=== PATIENT | female | born 1930 | race Caucasian/White ===

== ENCOUNTER 2016-11-27 09:01 | Inpatient (IN) | payer MEDICARE ==
[2016-11-27 10:25] LABS: Appearance,Urine Cloudy (Clear); Bilirubin,Urine Negative (Negative); Glucose,Urine (UA) Negative (Negative); Ketones,Urine Trace (Negative); Leukocyte Esterase,Urine Small (Negative); Nitrite,Urine Negative (Negative); Particle Count 15031; Protein,Urine 1+ (Negative); RBC,Urine >182 /hpf (0-5); Specific Gravity,Urine 1.015 (1.001-1.035); Squamous Epithelial Cell,Urine <1 /hpf (0-4); UA Billing (MACRO vs. MICRO) MICRO; Urobilinogen,Urine <2.0 mg/dL (<2.0); WBC,Urine 5 /hpf (0-5)
[2016-11-27 10:50] LABS: Anisocytosis Slight; Basophils % (A) 0 %; CH 25.6; CHCM 30.7; Eosinophils % (A) 0 %; HCT 28.1 % (34.0-46.0); HDW 2.69; Hypochromasia Moderate; Luc # (Auto) 0.06; Luc % (Auto) 1; Lymphocytes # (A) 0.8 k/uL (1.0-4.8); Lymphocytes % (A) 5 %; MCH 25.2 pg (25.0-35.0); MCHC 30.1 g/dL (31.0-37.0); MCV 83.9 fL (80.0-100.0); Mean Platelet Volume 7.9; Monocytes # (A) 0.5 k/uL (0-1.0); Monocytes % (A) 3 %; Neutrophils # (A) 12.9 k/uL (1.3-7.7); Neutrophils % (A) 91 %; RBC 3.35 m/uL (3.80-5.40); RDW 18.5 % (11.5-15.5); WBC 14.3 k/uL (3.8-10.6); WBC (Perox) 15.32
[2016-11-27 10:54] LABS: INR 1.1 (<1.1); Partial Thromboplastin Time 22.3 sec (22.0-30.0); Prothrombin Time 11.2 sec (9.0-12.0)
[2016-11-27 10:55] LABS: Calcium 8.9 mg/dL (8.4-10.2); Total Bilirubin 0.5 mg/dL (0.2-1.3); Total Protein 6.8 g/dL (6.3-8.2)
[2016-11-27 11:01] LABS: HGB 8.4 gm/dL (11.4-16.0)
--- NOTE | 2016-11-27 11:14 | XR ---
EXAMINATION TYPE: XR chest 1V portable DATE OF EXAM: 11/27/2016 10:58 AM COMPARISON: Prior chest x-ray from 4 days earlier. HISTORY: Altered mental status and weakness. TECHNIQUE: Single AP portable frontal view of the chest is obtained. FINDINGS: The osseous structures are demineralized. There is stable mild cardiomegaly with atheroscl erotic thoracic aorta. There is chronic emphysematous change with persistent small to moderate size l eft pleural effusion and associated basilar atelectasis and/or infiltrate. Suspect tiny right pleural effusion. No new focal airspace opacity or pneumothorax is seen bilaterally IMPRESSION: Overall stable findings, mild cardiomegaly with small to moderate size left pleural effu eliseo and suspected tiny right pleural effusion, there is associated left basilar atelectasis and/or i nfiltrate present. Background of chronic parenchymal changes noted.
--- NOTE | 2016-11-27 11:16 | CT ---
EXAMINATION TYPE: CT brain wo con DATE OF EXAM: 11/27/2016 10:50 AM COMPARISON: NONE HISTORY: altered mental changes CT DLP: 1072.3 mGycm Automated exposure control for dose reduction was used. Helical acquisition through the brain Motion on the exam FINDINGS: There is no acute intracranial hemorrhage, mass effect, or midline shift identified. The ventricles and sulci are within normal limits in size. White matter demyelination change is present in the paddy ventricular location, right david shows a focus of low attenuation measuring approximately 7 mm. Focal low attenuation in the basal ganglia bilaterally, possible additional within the left david. The glob es are intact and the visualized sinuses are clear. IMPRESSION: Probable chronic small vessel ischemia. There may be well-oriented degeneration within the right david , difficult to exclude subacute infarct. Consider brain MRI for better evaluation.
[2016-11-27] MEDS ORDERED: ENOXAPARIN 120 MG/0.8 ML SYRINGE SQ STA (12:43)
[2016-11-27] MEDS ORDERED: ACETAMINOPHEN TAB 325 MG TAB PO PRN (13:30)
[2016-11-27] MEDS ORDERED: ENOXAPARIN 120 MG/0.8 ML SYRINGE SQ SCH ×2 (13:30→14:32)
--- NOTE | 2016-11-27 13:36 | ED ---
Altered Mental Status HPI - General Chief Complaint: Altered Mental Status Stated Complaint: mrsa poss c diff Time Seen by Provider: 11/27/16 09:11 Source: family, EMS, RN notes reviewed Mode of arrival: EMS Limitations: altered mental status - History of Present Illness Initial Comments: This patient is an 86-year-old woman who was discharged from the hospital yesterday after a nearly 2 week stay during which she was treated for congestive heart failure, bilateral lower leg cellulitis, and some disorientation that was felt due to medication related encephalopathy. The patient is not able to give any history about her children state that she is definitely much worse than she had been when they saw her around 8 PM last night. The patient is weak, disoriented, not speaking clearly. The last known time that the patient was her usual self was approximately 8 PM. Again the patient is not able to give any history other than answer a few simple yes or no questions. When asked about back pain she does state yes, and her family notes she does have chronic back pain. She was not noted to have any fever at the long-term where she had been discharged to yesterday. MD Complaint: altered mental status Onset/Timin -: days(s) Severity: moderate Consistency of Symptoms: constant Context: change in medication Associated Symptoms: weakness - Related Data Home Medications Medication Instructions Recorded Confirmed Childress-3 Fatty Acids/Fish Oil [Fish 1 cap PO DAILY@0900 11/28/15 11/27/16 Oil 1,000 mg Softgel] Levalbuterol Hfa Inhaler [Xopenex 2 puff INHALATION RT-Q4H 10/01/16 11/27/16 Hfa Inhaler] Acetaminophen Tab [Tylenol] 650 mg PO Q4H PRN 11/13/16 11/27/16 Albuterol Sulfate [Proventil Hfa] 1 puff INHALATION RT-QID 11/13/16 11/27/16 Fluconazole [Diflucan] 100 mg PO DAILY@0900 11/27/16 11/27/16 Furosemide [Lasix] 40 mg PO BID@0600,1400 11/27/16 11/27/16 Lisinopril [Prinivil] 5 mg PO DAILY@0900 11/27/16 11/27/16 Zolpidem [Ambien] 5 mg PO HS@2100 PRN 11/27/16 11/27/16 Allergies Allergy/AdvReac Type Severity Reaction Status Date / Time amlodipine [From Norvasc] Allergy Unknown Verified 11/27/16 09:13 aspirin Allergy Unknown Verified 11/27/16 09:13 cephalexin monohydrate Allergy Unknown Verified 11/27/16 09:13 [From Keflex] cetirizine HCl [From Zyrtec] Allergy Unknown Verified 11/27/16 09:13 ciprofloxacin [From Cipro] Allergy Unknown Verified 11/27/16 09:13 ciprofloxacin HCl Allergy Unknown Verified 11/27/16 09:13 [From Cipro] clarithromycin [From Biaxin] Allergy Unknown Verified 11/27/16 09:13 hydrochlorothiazide Allergy Unknown Verified 11/27/16 09:13 iron Allergy Unknown Verified 11/27/16 09:13 levofloxacin [From Levaquin] Allergy Unknown Verified 11/27/16 09:13 milk Allergy Unknown Verified 11/27/16 09:13 nitrofurantoin Allergy Unknown Verified 11/27/16 09:13 [From Macrobid] nitrofurantoin Allergy Unknown Verified 11/27/16 09:13 macrocrystalline [From Macrobid] nut - unspecified [nut] Allergy Unknown Verified 11/27/16 09:13 oats Allergy Unknown Verified 11/27/16 09:13 Penicillins Allergy Unknown Verified 11/27/16 09:13 piroxicam [From Feldene] Allergy Unknown Verified 11/27/16 09:13 Sulfa (Sulfonamide Allergy Unknown Verified 11/27/16 09:13 Antibiotics) wheat Allergy Unknown Verified 11/27/16 09:13 Review of Systems ROS Statement: Those systems with pertinent positive or pertinent negative responses have been documented in the HPI. ROS Other: All systems not noted in ROS Statement are negative. Limitations: ROS unobtainable due to patients medical condition Past Medical History Past Medical History: Asthma, Cancer, GERD/Reflux, Hypertension, Osteoarthritis (OA) Additional Past Medical History / Comment(s): colon ca 2010, sinusitis, incont of urine,gout uti, cellulitis, wounds bilateral legs History of Any Multi-Drug Resistant Organisms: MRSA Date of last positivie culture/infection: 11/13/16 MDRO Source:: Right & Left Legs Past Surgical History: Appendectomy, Hysterectomy Additional Past Surgical History / Comment(s): bowel resection ,laure cataracts, egd, lasere eye sx for glaucoma, 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 PT USES A CANE/WALKER/WHEELCHAIR. Has home care in place Smoking Status: Never smoker Past Alcohol Use History: None Reported Past Drug Use History: None Reported - Past Family History Father Family Medical History: Cancer, Prostate Disorder Additional Family Medical History / Comment(s): prostate cancer Mother Family Medical History: Congestive Heart Failure (CHF) General Exam Limitations: altered mental status General appearance: obtunded Head exam: Present: atraumatic, normocephalic Eye exam: Present: normal appearance, PERRL, EOMI. Absent: scleral icterus, conjunctival injection ENT exam: Present: mucous membranes dry Neck exam: Present: normal inspection. Absent: tenderness, meningismus Respiratory exam: Present: rhonchi, other (Patient is mildly tachypneic with a rate of 24 at my exam). Absent: wheezes, rales, stridor Cardiovascular Exam: Present: irregular rhythm, normal heart sounds. Absent: systolic murmur, diastolic murmur, rubs, gallop GI/Abdominal exam: Present: soft. Absent: distended, tenderness, guarding, rebound, rigid, mass Back exam: Absent: CVA tenderness (R), CVA tenderness (L) Neurological exam: Present: altered, CN II-XII intact, other (Neurologic exam the patient is able to cooperate with simple one step commands. She does not appear to have a focal weakness at this point.). Absent: oriented X3 (Patient is oriented to person), motor sensory deficit Skin exam: Present: warm, dry, intact, pallor. Absent: rash, cyanosis, diaphoretic, petechiae, mottled Course Vital Signs 11/27/16 11/27/16 11/27/16 09:08 09:15 09:31 Temperature 98.8 F Pulse Rate 91 91 93 Pulse Rate [ Fisher Line ] Respiratory 40 H 28 H 24 Rate Blood Pressure 114/53 116/87 121/97 Blood Pressure [Supine] O2 Sat by Pulse 97 96 95 Oximetry 11/27/16 11/27/16 11/27/16 10:00 10:15 13:00 Temperature Pulse Rate 94 89 77 Pulse Rate [ Fisher Line ] Respiratory 24 24 18 Rate Blood Pressure 137/94 131/67 107/53 Blood Pressure [Supine] O2 Sat by Pulse 94 L 97 97 Oximetry 11/27/16 11/27/16 11/27/16 13:25 13:55 14:34 Temperature 97.7 F 96.8 F L 97.4 F L Pulse Rate 90 Pulse Rate [ 94 91 Fisher Line ] Respiratory 24 20 24 Rate Blood Pressure 117/55 Blood Pressure 118/62 121/74 [Supine] O2 Sat by Pulse 97 96 99 Oximetry 11/27/16 16:50 Temperature 96.8 F L Pulse Rate Pulse Rate [ 89 Fisher Line ] Respiratory 18 Rate Blood Pressure Blood Pressure 88/45 [Supine] O2 Sat by Pulse 90 L Oximetry Medical Decision Making - Medical Decision Making Patient is a 6-year-old woman with appears to be altered mental status. She has had number recent medication changes including reduction in the usual narcotics that she had been given for back pain, and it is possible that the patient's etiology is due to medication change/withdrawal type symptoms. The patient's CT however is concerning for a possible stroke. Discussed these findings with Dr. Nascimento, and the patient will be admitted to have neurology evaluation and a possible MRI. - Lab Data Result diagrams: 11/27/16 10:16 11/27/16 10:16 Lab Results 11/27/16 11/27/16 11/27/16 Range/Units 09:55 10:16 10:16 WBC 14.3 H (3.8-10.6) k/uL RBC 3.35 L (3.80-5.40) m/uL Hgb 8.4 L D (11.4-16.0) gm/dL Hct 28.1 L (34.0-46.0) % MCV 83.9 (80.0-100.0) fL MCH 25.2 (25.0-35.0) pg MCHC 30.1 L (31.0-37.0) g/dL RDW 18.5 H (11.5-15.5) % Plt Count 315 (150-450) k/uL Neutrophils % 91 % Lymphocytes % 5 % Monocytes % 3 % Eosinophils % 0 % Basophils % 0 % Neutrophils # 12.9 H (1.3-7.7) k/uL Lymphocytes # 0.8 L (1.0-4.8) k/uL Monocytes # 0.5 (0-1.0) k/uL Eosinophils # 0.0 (0-0.7) k/uL Basophils # 0.0 (0-0.2) k/uL Hypochromasia Moderate Anisocytosis Slight PT 11.2 (9.0-12.0) sec INR 1.1 (<1.1) APTT 22.3 (22.0-30.0) sec Sodium (137-145) mmol/L Potassium (3.5-5.1) mmol/L Chloride (98-107) mmol/L Carbon Dioxide (22-30) mmol/L Anion Gap mmol/L BUN (7-17) mg/dL Creatinine (0.52-1.04) mg/dL Est GFR (MDRD) Af Amer (>60 ml/min/1.73 sqM) Est GFR (MDRD) Non-Af (>60 ml/min/1.73 sqM) Glucose (74-99) mg/dL Plasma Lactic Acid Amarjit (0.7-2.0) mmol/L Calcium (8.4-10.2) mg/dL Total Bilirubin (0.2-1.3) mg/dL AST (14-36) U/L ALT (9-52) U/L Alkaline Phosphatase (38-126) U/L Ammonia (<30) umol/L Troponin I (0.000-0.034) ng/mL Total Protein (6.3-8.2) g/dL Albumin (3.5-5.0) g/dL Urine Color Yellow Urine Appearance Cloudy H (Clear) Urine pH 5.0 (5.0-8.0) Ur Specific [place] 1.015 (1.001-1.035) Urine Protein 1+ H (Negative) Urine Glucose (UA) Negative (Negative) Urine Ketones Trace H (Negative) Urine Blood Moderate H (Negative) Urine Nitrate Negative (Negative) Urine Bilirubin Negative (Negative) Urine Urobilinogen <2.0 (<2.0) mg/dL Ur Leukocyte Esterase Small H (Negative) Urine RBC >182 H (0-5) /hpf Urine WBC 5 (0-5) /hpf Ur Squamous Epith Cells <1 (0-4) /hpf Urine Opiates Screen Not Detected (NotDetected) Ur Oxycodone Screen Not Detected (NotDetected) Urine Methadone Screen Not Detected (NotDetected) Ur Propoxyphene Screen Not Detected (NotDetected) Ur Barbiturates Screen Not Detected (NotDetected) U Tricyclic Antidepress Not Detected (NotDetected) Ur Phencyclidine Scrn Not Detected (NotDetected) Ur Amphetamines Screen Not Detected (NotDetected) U Methamphetamines Scrn Not Detected (NotDetected) U Benzodiazepines Scrn Not Detected (NotDetected) Urine Cocaine Screen Not Detected (NotDetected) U Marijuana (THC) Screen Not Detected (NotDetected) 11/27/16 11/27/16 11/27/16 Range/Units 10:16 10:16 10:16 WBC (3.8-10.6) k/uL RBC (3.80-5.40) m/uL Hgb (11.4-16.0) gm/dL Hct (34.0-46.0) % MCV (80.0-100.0) fL MCH (25.0-35.0) pg MCHC (31.0-37.0) g/dL RDW (11.5-15.5) % Plt Count (150-450) k/uL Neutrophils % % Lymphocytes % % Monocytes % % Eosinophils % % Basophils % % Neutrophils # (1.3-7.7) k/uL Lymphocytes # (1.0-4.8) k/uL Monocytes # (0-1.0) k/uL Eosinophils # (0-0.7) k/uL Basophils # (0-0.2) k/uL Hypochromasia Anisocytosis PT (9.0-12.0) sec INR (<1.1) APTT (22.0-30.0) sec Sodium 145 (137-145) mmol/L Potassium 4.0 (3.5-5.1) mmol/L Chloride 104 (98-107) mmol/L Carbon Dioxide 30 (22-30) mmol/L Anion Gap 11 mmol/L BUN 46 H (7-17) mg/dL Creatinine 1.98 H (0.52-1.04) mg/dL Est GFR (MDRD) Af Amer 29 (>60 ml/min/1.73 sqM) Est GFR (MDRD) Non-Af 24 (>60 ml/min/1.73 sqM) Glucose 132 H (74-99) mg/dL Plasma Lactic Acid Amarjit 1.3 (0.7-2.0) mmol/L Calcium 8.9 (8.4-10.2) mg/dL Total Bilirubin 0.5 (0.2-1.3) mg/dL AST 23 (14-36) U/L ALT 30 (9-52) U/L Alkaline Phosphatase 69 (38-126) U/L Ammonia 16 (<30) umol/L Troponin I 0.257 H* (0.000-0.034) ng/mL Total Protein 6.8 (6.3-8.2) g/dL Albumin 2.6 L (3.5-5.0) g/dL Urine Color Urine Appearance (Clear) Urine pH (5.0-8.0) Ur Specific [place] (1.001-1.035) Urine Protein (Negative) Urine Glucose (UA) (Negative) Urine Ketones (Negative) Urine Blood (Negative) Urine Nitrate (Negative) Urine Bilirubin (Negative) Urine Urobilinogen (<2.0) mg/dL Ur Leukocyte Esterase (Negative) Urine RBC (0-5) /hpf Urine WBC (0-5) /hpf Ur Squamous Epith Cells (0-4) /hpf Urine Opiates Screen (NotDetected) Ur Oxycodone Screen (NotDetected) Urine Methadone Screen (NotDetected) Ur Propoxyphene Screen (NotDetected) Ur Barbiturates Screen (NotDetected) U Tricyclic Antidepress (NotDetected) Ur Phencyclidine Scrn (NotDetected) Ur Amphetamines Screen (NotDetected) U Methamphetamines Scrn (NotDetected) U Benzodiazepines Scrn (NotDetected) Urine Cocaine Screen (NotDetected) U Marijuana (THC) Screen (NotDetected) Disposition Clinical Impression: Altered mental status Disposition: ADMITTED IP TO THIS [facility] Condition: Poor
[2016-11-27] MEDS: SODIUM CHLORIDE 0.9% 1,000 ML IV SCH (13:52)
[2016-11-27] MEDS ORDERED: FUROSEMIDE 40 MG TAB PO SCH (14:00)
--- NOTE | 2016-11-27 16:20 | US ---
EXAMINATION TYPE: US carotid duplex BILAT DATE OF EXAM: 11/27/2016 3:35 PM COMPARISON: NONE CLINICAL HISTORY: altered mental status. Carotid stenosis EXAM MEASUREMENTS: RIGHT: Peak Systolic Velocity (PSV) cm/sec ----- Right CCA: 85.4 ----- Right ICA: 83.8 ----- Right ECA: 106.4 ICA/CCA ratio: 1.0 RIGHT: End Diastole cm/sec ----- Right CCA: 14.4 ----- Right ICA: 16.0 ----- Right ECA: 0.0 LEFT: Peak Systolic Velocity (PSV) cm/sec ----- Left CCA: 82.2 ----- Left ICA: 96.8 ----- Left ECA: 82.2 ICA/CCA ratio: 1.2 LEFT: End Diastole cm/sec ----- Left CCA: 11.1 ----- Left ICA: 0.0 ----- Left ECA: 0.0 VERTEBRALS (direction of flow): Right Vertebral: Antegrade Left Vertebral: Antegrade exam technically difficult due to patient being unable to hold still and patient continually moaned t hroughout exam. Arrythmia noted. Grayscale, color Doppler, spectral Doppler imaging performed. Waveform analysis does not show signifi cant stenosis of the proximal internal carotid arteries bilaterally by Doppler criteria. Arrhythmias noted incidentally. Extensive atheromatous change present in the common carotid, carotid bulb, international marketing intern al carotid arteries. IMPRESSION: No hemodynamic significant stenosis of the proximal internal carotid arteries bilaterall y by Doppler criteria, and indirect measurement of carotid stenosis.
[2016-11-27] MEDS: ALBUTEROL NEBULIZED 2.5 MG/3 ML INHALATION SCH ×2 (17:26→20:50)
--- NOTE | 2016-11-27 19:08 | MR ---
EXAMINATION TYPE: MR brain wo con DATE OF EXAM: 11/27/2016 6:57 PM COMPARISON: NONE HISTORY: Pt here for altered mental changes, Also recommended in CT report T1-weighted sagittal, T2, FLAIR, and diffusion axial, and T2 coronal coronal views of the brain are s ubmitted. There are multiple areas of high signal on diffusion noted. There is a 7 mm area of high signal within the right cerebellar hemisphere, 1 cm area of signal withi n the midbrain on the right, 7 mm area of abnormal signal within the david on the right, 1 cm area of abnormal signal in the periatrial region of the temporal occipital junction on the left and 4 mm area of abnormal signal near the corpus callosum to the right of midline. Additional 7 mm area of abnorma l signal in the caudate nucleus of the basal ganglia and within the left parietal lobe are noted. No midline shift. No mass effect. Extensive degenerative change seen with a slightly greater central component. Extensive periventricular and deep white matter areas of abnormal signal are noted. Incidental note is made of bilateral parotid gland lesions which appear to be predominantly cystic on the right and indeterminate in the left and could be correlated with ultrasound. Report called to e patient's nurse. Craniocervical junction maintained. IMPRESSION: 1. Multifocal areas of acute ischemia involving the posterior fossa including the brainstem as well a s supratentorial structures as discussed above. Given the multiplicity of findings and apparent distr ibution of blood supply correlate for embolic phenomenon. 2. Extensive degenerative remote ischemic change. 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 3. Bilateral parotid gland lesions correlate with ultrasound.
--- NOTE | 2016-11-27 19:15 | P.CNNES ---
History of Present Illness Consult date: 11/27/16 Reason for Consult: Patient being evaluated for altered mental status and confusion. History of Present Illness: This patient is a 86-year-old right-handed white female who was just recently discharged from Hospital yesterday after being treated for the past 2 weeks for congestive heart failure. She also had bilateral lower leg cellulitis and intermittent confusion and disorientation. She was [facility] to a prison and apparently showed increasing altered mentation. She was readmitted today for further evaluation in the ER she was very obtunded. She underwent a computed tomography scan of the brain which revealed chronic small vessel ischemia and questionable area of subacute stroke involving the right david. She was subsequently transferred to the intensive care unit. She continued to show increase confusion and disorientation in the intensive care unit. Neurology is now being consulted for further evaluation and recommendations. The patient remains lethargic and obtunded. She does not follow any commands at this time. She was transferred to the medical floor today out of the ICU setting. She still remains very confused and disoriented. She does appear to have disconjugate eye gaze when trying to answer questions. Her speech also is somewhat impaired. CAT scan of the brain reveals possible brainstem stroke in the right david. We have recommended MRI of the brain for further evaluation. At this time we would recommend a complete stroke evaluation. She did have a carotid Doppler ultrasound procedure done which revealed no significant carotid artery stenosis. We will continue close neurological follow-up for this patient. Her overall condition and prognosis at this time remains very guarded. Review of Systems Cardiovascular: Denies chest pain, Denies shortness of breath Respiratory: Denies cough Gastrointestinal: Denies abdominal pain, Denies diarrhea, Denies nausea, Denies vomiting Genitourinary: Denies dysuria, Denies hematuria Musculoskeletal: Denies myalgias Integumentary: Denies pruritus, Denies rash Neurological: Reports change in mentation, Reports confusion, Reports memory loss, Denies numbness, Denies weakness Psychiatric: Denies anxiety, Denies depression Endocrine: Denies fatigue, Denies weight change Past Medical History Past Medical History: Asthma, Cancer, Eye Disorder, GERD/Reflux, Hypertension, Osteoarthritis (OA), Renal Disease Additional Past Medical History / Comment(s): Pt recently admitted 11/13/16 with acute toxic metabolic encephalopathy 2ndary to benzodiazepam/narcotics and an aspect of infection, bilateral lower extremity cellulitis, hypernatremia, hypokalemia, abdominal pain. Other PMH: colon ca 2010, sinusitis, incont of urine,gout uti, cellulitis, recurrent cellulitis bilateral lower legs/wounds bilateral legs-has been seen in wound care center, ckd stage II, past glaucoma bilaterally with surgery. 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 Past Anesthesia/Blood Transfusion Reactions: No Reported Reaction Past Psychological History: No Psychological Hx Reported Additional Psychological History / Comment(s): Patient discharged to [facility] on the [place] 11/26/16. She currently was bed bound. She needs assist with all ADLs. She is on O2 at 2L/NC. Smoking Status: Never smoker Past Alcohol Use History: None Reported Past Drug Use History: None Reported - Past Family History Father Family Medical History: Cancer, Prostate Disorder Additional Family Medical History / Comment(s): prostate cancer Mother Family Medical History: Congestive Heart Failure (CHF) Medications and Allergies Home Medications Medication Instructions Recorded Confirmed Type [place]-3 Fatty Acids/Fish Oil [Fish 1 cap PO DAILY@0900 11/28/15 11/27/16 History Oil 1,000 mg Softgel] Levalbuterol Hfa Inhaler [Xopenex 2 puff INHALATION RT-Q4H 10/01/16 11/27/16 History Hfa Inhaler] Acetaminophen Tab [Tylenol] 650 mg PO Q4H PRN 11/13/16 11/27/16 History Albuterol Sulfate [Proventil Hfa] 1 puff INHALATION RT-QID 11/13/16 11/27/16 History Fluconazole [Diflucan] 100 mg PO DAILY@0900 11/27/16 11/27/16 History Furosemide [Lasix] 40 mg PO BID@0600,1400 11/27/16 11/27/16 History Lisinopril [Prinivil] 5 mg PO DAILY@0900 11/27/16 11/27/16 History Zolpidem [Ambien] 5 mg PO HS@2100 PRN 11/27/16 11/27/16 History Allergies Allergy/AdvReac Type Severity Reaction Status Date / Time amlodipine [From Norvasc] Allergy Unknown Verified 11/27/16 09:13 aspirin Allergy Unknown Verified 11/27/16 09:13 cephalexin monohydrate Allergy Unknown Verified 11/27/16 09:13 [From Keflex] cetirizine HCl [From Zyrtec] Allergy Unknown Verified 11/27/16 09:13 ciprofloxacin [From Cipro] Allergy Unknown Verified 11/27/16 09:13 ciprofloxacin HCl Allergy Unknown Verified 11/27/16 09:13 [From Cipro] clarithromycin [From Biaxin] Allergy Unknown Verified 11/27/16 09:13 hydrochlorothiazide Allergy Unknown Verified 11/27/16 09:13 iron Allergy Unknown Verified 11/27/16 09:13 levofloxacin [From Levaquin] Allergy Unknown Verified 11/27/16 09:13 milk Allergy Unknown Verified 11/27/16 09:13 nitrofurantoin Allergy Unknown Verified 11/27/16 09:13 [From Macrobid] nitrofurantoin Allergy Unknown Verified 11/27/16 09:13 macrocrystalline [From Macrobid] nut - unspecified [nut] Allergy Unknown Verified 11/27/16 09:13 oats Allergy Unknown Verified 11/27/16 09:13 Penicillins Allergy Unknown Verified 11/27/16 09:13 piroxicam [From Feldene] Allergy Unknown Verified 11/27/16 09:13 Sulfa (Sulfonamide Allergy Unknown Verified 11/27/16 09:13 Antibiotics) wheat Allergy Unknown Verified 11/27/16 09:13 Physical Examination - Vital Signs Vital Signs: Vital Signs Temp Pulse Pulse Resp BP BP Pulse Ox 11/27/16 17:27 98 11/27/16 16:50 96.8 F L 89 18 88/45 90 L 11/27/16 14:34 97.4 F L 91 24 121/74 99 11/27/16 13:55 96.8 F L 90 20 117/55 96 - Constitutional General appearance: average body habitus, cooperative - EENT EENT: mucous membranes moist - Respiratory Respiratory: lungs clear, normal breath sounds - Cardiovascular Cardiovascular: regular rate, normal S1, normal S2 Extremities: no peripheral edema bilaterally - Gastrointestinal Gastrointestinal: normoactive bowel sounds - Integumentary Integumentary: normal - Neurologic Cranial nerve examination: PERRL, EOMI (Patient has disconjugate eye gaze.), V1/ V2/V3 grossly intact, face symmetric, intact gag reflex, facial droop Speech examination: intact Sensorimotor examination: intact Motor examination - right side: 3/5: biceps, triceps, wrist flexion, wrist extension, roll over press operator, hip flexors, knee extensors, dorsiflexion, toe extension (EHL) , plantarflexion Motor examination - left side: 3/5: biceps, triceps, wrist flexion, wrist extension, roll over press operator, hip flexors, knee extensors, dorsiflexion, toe extension (EHL) , plantarflexion Detailed sensory examination: intact Reflex and gait examination: intact Reflexes: 1+: ankle, bicep, knee, tricep (They want everything done) - Musculoskeletal Musculoskeletal: no pain ( so we can see if we find any source) - Psychiatric Psychiatric: agitated (try thank you ) Results - Laboratory Findings CBC and BMP: 11/27/16 10:16 11/27/16 10:16 Abnormal Lab Findings: Abnormal Labs 11/27/16 15:53 Troponin I 0.312 H* Assessment and Plan (1) Brainstem stroke Status: Acute Code(s): I63.9 - CEREBRAL INFARCTION, UNSPECIFIED (2) Acute encephalopathy Status: Acute Code(s): G93.40 - ENCEPHALOPATHY, UNSPECIFIED (3) Cellulitis of both lower extremities Status: Acute Code(s): L03.115 - CELLULITIS OF RIGHT LOWER LIMB; L03.116 - CELLULITIS OF LEFT LOWER LIMB Plan: This patient is a 86-year-old right-handed white female who was admitted today to the hospital with acute confusion and disorientation. Patient was noted to have increasing signs of altered mental status at the prison. She was just discharged from the hospital yesterday after being treated for 2 weeks for congestive heart failure. She also has a history of bilateral cellulitis in the lower extremities. She was found to have increased confusion and was readmitted to hospital today. She underwent computed tomography scan of the brain which revealed possible subacute infarct in the right david. Her neurological examination reveals the patient to be obtunded. She has disconjugate eye gaze mostly involving the right eye. Her clinical neurological findings suggest brainstem stroke. We would recommend further evaluation with MRI of the brain for further evaluation of possible acute versus subacute pontine stroke. We would also recommend carotid Doppler and echocardiogram as complete stroke evaluation for this patient. Her overall prognosis at this time remains very guarded. We will continue close neurological follow-up at this patient during this admission. Time with Patient: Greater than 30
--- NOTE | 2016-11-27 19:51 | P.HPIM ---
History of Present Illness H&P Date: 11/27/16 Chief Complaint: AMS 86 yr old female who was recently admitted to the hospital after being admitted for YARELY, sec to fluid overload, complicated with lower extremity cellulitis. Pt' s course was then noted to be complicated with acute toxic encephalopathy due to pain medications. Pt improved and was discharged a day prior to this admission. pt was able to communicate appropriately and recognize her children at the time of the discharge. Pt was admitte to the NH, however apparently was noted to have acute change in mental status. Pt was evaluated in the ER, was noted to be in atrial fibrillation with RVR, which appears to be new onset. pt was on telemetry monitering during the previous admission. pt was noted to be in sinus rhythm with PVC's. A echocardiogram, transthoracic didnot reveal any intracardiac thrombus at that time. Pt was noted to have change in mental status today, was not following any commands. Pt only moves with painful stimuli. Pt's son is at bedside. Bp was subnormal during this admission. Does on follow any commands. apparently had an episode of agitation initially last night. CT scan showed some changes with gallardo/white changes concerning for a stroke. Review of Systems deferred due to the current condition. 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 PT USES A CANE/WALKER/WHEELCHAIR. Has home care in place Smoking Status: Never smoker Past Alcohol Use History: None Reported Past Drug Use History: None Reported - Past Family History Father Family Medical History: Cancer, Prostate Disorder Additional Family Medical History / Comment(s): prostate cancer Mother Family Medical History: Congestive Heart Failure (CHF) Medications and Allergies Home Medications Medication Instructions Recorded Confirmed Type [place]-3 Fatty Acids/Fish Oil [Fish 1 cap PO DAILY@0900 11/28/15 11/27/16 History Oil 1,000 mg Softgel] Levalbuterol Hfa Inhaler [Xopenex 2 puff INHALATION RT-Q4H 10/01/16 11/27/16 History Hfa Inhaler] Acetaminophen Tab [Tylenol] 650 mg PO Q4H PRN 11/13/16 11/27/16 History Albuterol Sulfate [Proventil Hfa] 1 puff INHALATION RT-QID 11/13/16 11/27/16 History Fluconazole [Diflucan] 100 mg PO DAILY@0900 11/27/16 11/27/16 History Furosemide [Lasix] 40 mg PO BID@0600,1400 11/27/16 11/27/16 History Lisinopril [Prinivil] 5 mg PO DAILY@0900 11/27/16 11/27/16 History Zolpidem [Ambien] 5 mg PO HS@2100 PRN 11/27/16 11/27/16 History Allergies Allergy/AdvReac Type Severity Reaction Status Date / Time amlodipine [From Norvasc] Allergy Unknown Verified 11/27/16 09:13 aspirin Allergy Unknown Verified 11/27/16 09:13 cephalexin monohydrate Allergy Unknown Verified 11/27/16 09:13 [From Keflex] cetirizine HCl [From Zyrtec] Allergy Unknown Verified 11/27/16 09:13 ciprofloxacin [From Cipro] Allergy Unknown Verified 11/27/16 09:13 ciprofloxacin HCl Allergy Unknown Verified 11/27/16 09:13 [From Cipro] clarithromycin [From Biaxin] Allergy Unknown Verified 11/27/16 09:13 hydrochlorothiazide Allergy Unknown Verified 11/27/16 09:13 iron Allergy Unknown Verified 11/27/16 09:13 levofloxacin [From Levaquin] Allergy Unknown Verified 11/27/16 09:13 milk Allergy Unknown Verified 11/27/16 09:13 nitrofurantoin Allergy Unknown Verified 11/27/16 09:13 [From Macrobid] nitrofurantoin Allergy Unknown Verified 11/27/16 09:13 macrocrystalline [From Macrobid] nut - unspecified [nut] Allergy Unknown Verified 11/27/16 09:13 oats Allergy Unknown Verified 11/27/16 09:13 Penicillins Allergy Unknown Verified 11/27/16 09:13 piroxicam [From Feldene] Allergy Unknown Verified 11/27/16 09:13 Sulfa (Sulfonamide Allergy Unknown Verified 11/27/16 09:13 Antibiotics) wheat Allergy Unknown Verified 11/27/16 09:13 Physical Exam Vitals: Vital Signs Temp Pulse Pulse Resp BP BP Pulse Ox 11/27/16 17:27 98 11/27/16 16:50 96.8 F L 89 18 88/45 90 L 11/27/16 14:34 97.4 F L 91 24 121/74 99 11/27/16 13:55 96.8 F L 90 20 117/55 96 - Constitutional General appearance: mild distress - EENT Eyes: PERRLA - Neck Carotids: bilateral: bruit absent - Respiratory Respiratory: bilateral: diminished - Cardiovascular Rhythm: irregularly irregular - Gastrointestinal General gastrointestinal: distended, normal bowel sounds, soft - Neurologic non responsive MOves all four extremities to painful stimuli Upgoing babinski on the right - Psychiatric lethargic Results CBC & Chem 7: 11/27/16 10:16 11/27/16 10:16 Labs: Abnormal Lab Results - Last 24 Hours (Table) 11/27/16 Range/Units 15:53 Troponin I 0.312 H* (0.000-0.034) ng/mL Thrombosis Risk Factor Assmnt - Choose All That Apply Any of the Below Risk Factors Present?: Yes Each Factor Represents 1 point: Obesity (BMI >25) Other Risk Factors: Yes Each Risk Factor Represents 3 Points: Age 75 years or older Other congenital or acquired thrombophilia - If yes, enter type in comment: No Thrombosis Risk Factor Assessment Total Risk Factor Score: 4 Thrombosis Risk Factor Assessment Level: Moderate Risk Assessment and Plan Plan: 1. 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 New onset atrial fibrillation 3. Hypotension due to tachyphylaxis. 4. Acute metabolic encephalopathy. 5. recent bilateral cellulitis. 6. H/o of HTN 7. Dyslipidemia Plan start iv heparin., discontinue lovenox at this time Discussed that this type of stroke carries a poor prognosis with the son. Consideration of palliative care may be more optimal in this case. will discuss the options, if pt makes no considerable improvement in the next 48 hrs IVF at 100cc/hr, therapeutic increase in bp would be more beneficial in increasing CPP> Triage to the ICU, if there is change in mental status. Neurochecks Echocardiogram
[2016-11-27] MEDS ORDERED: SODIUM CHLORIDE 0.9% 1,000 ML IV SCH (20:00)
[2016-11-27 22:26] LABS: Glucose,Whole Blood 105 mg/dL (75-99)
[2016-11-27] MEDS ORDERED: HEPARIN SODIUM,PORCINE 5,000 UNIT/ML 1 ML VIAL IV ONE (23:55)
[2016-11-27] MEDS ORDERED: HEPARIN SODIUM,PORCINE 5,000 UNIT/ML 1 ML VIAL IV PRN (23:55)
[2016-11-28] MEDS: SODIUM CHLORIDE 0.9% 1,000 ML IV SCH ×3 (00:11→17:12)
[2016-11-28] MEDS: HEPARIN SODIUM,PORCINE/D5W PMX 25,000 UNIT in DEXTROSE/WATER 1 500ML.BAG IV SCH ×3 (00:11→06:53)
[2016-11-28] MEDS ORDERED: NALOXONE 0.4 MG/ML 1 ML VIAL IV PRN (01:49)
[2016-11-28 06:41] LABS: Anisocytosis Slight; Basophils % (A) 0 %; CHCM 29.1; Eosinophils % (A) 0 %; HCT 23.4 % (34.0-46.0); HDW 2.74; Hypochromasia Marked; Luc # (Auto) 0.21; Luc % (Auto) 2; Lymphocytes # (A) 0.9 k/uL (1.0-4.8); Lymphocytes % (A) 8 %; MCH 25.6 pg (25.0-35.0); MCHC 29.7 g/dL (31.0-37.0); MCV 86.2 fL (80.0-100.0); Mean Platelet Volume 7.2; Monocytes # (A) 0.8 k/uL (0-1.0); Monocytes % (A) 6 %; Neutrophils # (A) 9.7 k/uL (1.3-7.7); Neutrophils % (A) 83 %; RBC 2.71 m/uL (3.80-5.40); RDW 18.5 % (11.5-15.5); WBC 11.7 k/uL (3.8-10.6); WBC (Perox) 12.19
[2016-11-28 06:48] LABS: INR 1.2 (<1.1); Partial Thromboplastin Time 32.9 sec (22.0-30.0); Prothrombin Time 11.6 sec (9.0-12.0)
[2016-11-28 06:57] LABS: Calcium 8.4 mg/dL (8.4-10.2); Magnesium 1.7 mg/dL (1.6-2.3); Phosphorous 5.2 mg/dL (2.5-4.5); Total Bilirubin 0.4 mg/dL (0.2-1.3); Total Protein 6.5 g/dL (6.3-8.2)
--- NOTE | 2016-11-28 07:19 | XR ---
EXAMINATION TYPE: XR chest 1V DATE OF EXAM: 11/28/2016 7:10 AM COMPARISON: Prior chest x-ray 27 November 2016 HISTORY: Shortness of breath TECHNIQUE: Single frontal view of the chest is obtained. FINDINGS: The heart remains enlarged. Retrocardiac density with obscured left hemidiaphragm is noted . There are overlying cardiac leads. Patient is rotated. No evident pneumothorax. Interstitium mildly increased. IMPRESSION: Similar findings. Correlate to exclude pulmonary venous hypertension and interstitial ed violet. There may be left lower lobe atelectasis versus pneumonia and associated effusion versus edema. Heart is likely enlarged, follow-up recommended.
[2016-11-28] MEDS: ALBUTEROL NEBULIZED 2.5 MG/3 ML INHALATION SCH ×4 (07:34→20:01)
[2016-11-28] MEDS ORDERED: LISINOPRIL 5 MG TAB PO SCH (09:00)
[2016-11-28] MEDS ORDERED: NON-FORMULARY DRUG (Omega-3 Fatty Acids/Fish Oil [Fish Oil 1,000 Mg Softgel] 1 CAP) PO SCH (09:00)
[2016-11-28] MEDS ORDERED: FLUCONAZOLE 100 MG TAB PO SCH (09:00)
--- NOTE | 2016-11-28 09:27 | P.CRDCN ---
History of Present Illness Consult date: 11/28/16 History of present illness: This is a pleasant 86-year-old female patient with a past medical history significant for hypertension who just was discharged from the hospital recently and she was residing in an extended care facility where she was brought back to the hospital again with a change in mental status. The patient was found to be in A. fib with RVR associated with a change in mental status. She underwent an MRI of the brain and that showed what it seems to be multiple areas of acute infarct involving the brainstem as well as the supratentorial structure. The patient was restarted on heparin IV. She underwent carotid duplex study which came in to be unremarkable. Currently the patient is confused and she is educated as well. She is slightly tachypneic. Hemodynamically she continues to be stable with marginally low blood pressure and heart rate in the 90s with A. fib. She is on heparin IV but at the same time her hemoglobin is around 7. The family states that the patient never seen a channel man in the past and they are not aware of any history of CAD or CHF. The heart rate continues to be in the 90s. I would hold on any AV lloyd lana agents at this point in view of the marginally low blood pressure. If the patient goes into A. fib with RVR I would consider starting her on amiodarone IV. 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 PT USES A CANE/WALKER/WHEELCHAIR. Has home care in place Smoking Status: Never smoker Past Alcohol Use History: None Reported Past Drug Use History: None Reported - Past Family History Father Family Medical History: Cancer, Prostate Disorder Additional Family Medical History / Comment(s): prostate cancer Mother Family Medical History: Congestive Heart Failure (CHF) Medications and Allergies Home Medications Medication Instructions Recorded Confirmed Type [place]-3 Fatty Acids/Fish Oil [Fish 1 cap PO DAILY@0900 11/28/15 11/27/16 History Oil 1,000 mg Softgel] Levalbuterol Hfa Inhaler [Xopenex 2 puff INHALATION RT-Q4H 10/01/16 11/27/16 History Hfa Inhaler] Acetaminophen Tab [Tylenol] 650 mg PO Q4H PRN 11/13/16 11/27/16 History Albuterol Sulfate [Proventil Hfa] 1 puff INHALATION RT-QID 11/13/16 11/27/16 History Fluconazole [Diflucan] 100 mg PO DAILY@0900 11/27/16 11/27/16 History Furosemide [Lasix] 40 mg PO BID@0600,1400 11/27/16 11/27/16 History Lisinopril [Prinivil] 5 mg PO DAILY@0900 11/27/16 11/27/16 History Zolpidem [Ambien] 5 mg PO HS@2100 PRN 11/27/16 11/27/16 History Allergies Allergy/AdvReac Type Severity Reaction Status Date / Time amlodipine [From Norvasc] Allergy Unknown Verified 11/27/16 09:13 aspirin Allergy Unknown Verified 11/27/16 09:13 cephalexin monohydrate Allergy Unknown Verified 11/27/16 09:13 [From Keflex] cetirizine HCl [From Zyrtec] Allergy Unknown Verified 11/27/16 09:13 ciprofloxacin [From Cipro] Allergy Unknown Verified 11/27/16 09:13 ciprofloxacin HCl Allergy Unknown Verified 11/27/16 09:13 [From Cipro] clarithromycin [From Biaxin] Allergy Unknown Verified 11/27/16 09:13 hydrochlorothiazide Allergy Unknown Verified 11/27/16 09:13 iron Allergy Unknown Verified 11/27/16 09:13 levofloxacin [From Levaquin] Allergy Unknown Verified 11/27/16 09:13 milk Allergy Unknown Verified 11/27/16 09:13 nitrofurantoin Allergy Unknown Verified 11/27/16 09:13 [From Macrobid] nitrofurantoin Allergy Unknown Verified 11/27/16 09:13 macrocrystalline [From Macrobid] nut - unspecified [nut] Allergy Unknown Verified 11/27/16 09:13 oats Allergy Unknown Verified 11/27/16 09:13 Penicillins Allergy Unknown Verified 11/27/16 09:13 piroxicam [From Feldene] Allergy Unknown Verified 11/27/16 09:13 Sulfa (Sulfonamide Allergy Unknown Verified 11/27/16 09:13 Antibiotics) wheat Allergy Unknown Verified 11/27/16 09:13 Physical Exam Vitals: Vital Signs Temp Pulse Pulse Resp BP BP BP 11/28/16 07:42 99 11/28/16 07:38 95 11/28/16 07:00 94 22 97/49 11/28/16 06:00 100 22 103/61 11/28/16 05:00 97 22 95/48 11/28/16 04:00 97.6 F 104 H 28 H 111/60 11/28/16 03:00 94 28 H 111/67 11/28/16 02:00 87 24 102/51 11/28/16 01:00 84 22 96/46 11/28/16 00:00 98.7 F 96 22 102/46 11/27/16 23:02 90 26 H 92/54 11/27/16 23:00 98 20 92/54 11/27/16 22:34 97.0 F L 92 22 116/74 11/27/16 21:48 103 H 16 177/129 11/27/16 20:02 98.2 F 18 86/43 11/27/16 17:27 98 11/27/16 16:50 96.8 F L 89 18 88/45 11/27/16 14:34 97.4 F L 91 24 121/74 11/27/16 13:55 96.8 F L 90 20 117/55 Pulse Ox 11/28/16 07:42 11/28/16 07:38 11/28/16 07:00 99 11/28/16 06:00 98 11/28/16 05:00 97 11/28/16 04:00 97 11/28/16 03:00 97 11/28/16 02:00 98 11/28/16 01:00 100 11/28/16 00:00 100 11/27/16 23:02 97 11/27/16 23:00 97 01/10/17 22:34 98 11/27/16 21:48 95 11/27/16 20:02 95 11/27/16 17:27 11/27/16 16:50 90 L 11/27/16 14:34 99 11/27/16 13:55 96 Intake and Output 11/27/16 11/28/16 11/28/16 22:59 06:59 14:59 Intake Total 75 600.332 160 Output Total 150 500 115 Balance -75 100.332 45 Intake: IV 75 600 160 Sodium Chloride 0.9% 1, 75 600 160 000 ml @ 75 mls/hr IV . [id number] [facility] Rx#:[id number] Intake, IV Titration 0.332 Amount Heparin Sodium,Porcine/ 0.332 D5w Pmx 25,000 unit In Dextrose/Water 1 500ml. bag @ 8.77 UNITS/KG/HR 19 .89 mls/hr IV .Q24H [facility] Rx#:[id number] Output: Urine 150 500 115 Other: Voiding Method Indwelling Catheter Indwelling Catheter Weight 109 kg - Constitutional General appearance: mild distress, no acute distress - Respiratory Respiratory: bilateral: diminished - Cardiovascular Rhythm: irregularly irregular Heart sounds: normal: S1, S2 Results 11/28/16 06:15 11/28/16 06:15 Cardiac Enzymes 11/27/16 11/27/16 11/28/16 Range/Units 15:53 21:45 06:15 AST 36 (14-36) U/L Troponin I 0.312 H* 0.235 H* (0.000-0.034) ng/mL Coagulation 11/28/16 Range/Units 06:15 PT 11.6 (9.0-12.0) sec APTT 32.9 H (22.0-30.0) sec CBC 11/28/16 Range/Units 06:15 WBC 11.7 H (3.8-10.6) k/uL RBC 2.71 L (3.80-5.40) m/uL Hgb 7.0 L* (11.4-16.0) gm/dL Hct 23.4 L (34.0-46.0) % Plt Count 347 (150-450) k/uL Comprehensive Metabolic Panel 11/28/16 Range/Units 06:15 Sodium 146 H (137-145) mmol/L Potassium 4.0 (3.5-5.1) mmol/L Chloride 107 (98-107) mmol/L Carbon Dioxide 27 (22-30) mmol/L BUN 50 H (7-17) mg/dL Creatinine 2.01 H (0.52-1.04) mg/dL Glucose 107 H (74-99) mg/dL Calcium 8.4 (8.4-10.2) mg/dL AST 36 (14-36) U/L ALT 39 (9-52) U/L Alkaline Phosphatase 69 (38-126) U/L Total Protein 6.5 (6.3-8.2) g/dL Albumin 2.5 L (3.5-5.0) g/dL Current Medications Generic Name Dose Route Start Last Admin Trade Name Freq PRN Reason Stop Dose Admin Albuterol Sulfate 2.5 mg 11/27/16 16:00 11/28/16 07:34 Ventolin Nebulized INHALATION 2.5 mg RT-QID [facility] Administration Fluconazole 100 mg 11/28/16 09:00 11/28/16 08:02 Diflucan PO Not Given DAILY@0900 [facility] Heparin Sodium (Porcine) 0 unit 11/27/16 23:55 Heparin IV PER PROTOCOL PRN Low PTT Protocol Sodium Chloride 1,000 mls @ 75 mls/hr 11/27/16 13:30 11/28/16 03:13 Saline 0.9% IV 75 mls/hr .[id number] [facility] Administration Heparin Sodium/Dextrose 25,000 500 mls @ 19.89 mls/hr 11/27/16 23:55 06:53 unit/ IV Solution IV 10.05 units/kg/hr .Q24H [facility] 22.8 mls/hr Protocol Administration 8.77 UNITS/KG/HR Naloxone HCl 0.2 mg 11/28/16 01:49 Narcan IV Q2M PRN Opioid Reversal Intake and Output 11/27/16 11/28/16 11/28/16 22:59 06:59 14:59 Intake Total 75 600.332 160 Output Total 150 500 115 Balance -75 100.332 45 Intake: IV 75 600 160 Sodium Chloride 0.9% 1, 75 600 160 000 ml @ 75 mls/hr IV . [id number] [facility] Rx#:[id number] Intake, IV Titration 0.332 Amount Heparin Sodium,Porcine/ 0.332 D5w Pmx 25,000 unit In Dextrose/Water 1 500ml. bag @ 8.77 UNITS/KG/HR 19 .89 mls/hr IV .Q24H [facility] Rx#:[id number] Output: Urine 150 500 115 Other: Voiding Method Indwelling Catheter Indwelling Catheter Weight 109 kg 11/28/16 06:15 11/28/16 06:15 Assessment and Plan Plan: Assessment #1 change in mental status #2 acute stroke involving the brainstem #3 mild respiratory distress #4 A. fib with relatively controlled heart rate #5 multiple comorbid conditions Plan #1 the heart rate is in A. fib but with controlled rate #2 hold on any beta lana or calcium channel lana at this point #3 she is on anticoagulation with heparin #4 continue monitor the hemoglobin next #5 overall the prognosis is very poor.
--- NOTE | 2016-11-28 10:05 | P.CNPUL ---
History of Present Illness Consult date: 11/28/16 Chief complaint: Change in mental status History of present illness: This patient is a 86-year-old right-handed white female who was just recently discharged from Hospital yesterday after being treated for the past 2 weeks for congestive heart failure. She also had bilateral lower leg cellulitis and intermittent confusion and disorientation. She was sent to a [facility]pc and apparently showed increasing altered mentation. She was readmitted today for further evaluation in the ER she was very obtunded. She underwent a computed tomography scan of the brain which revealed chronic small vessel ischemia and questionable area of subacute stroke involving the right david. She was subsequently transferred to the intensive care unit. She continued to show increase confusion and disorientation in the intensive care unit. Note that the patient was also found to be in new onset atrial fibrillation with rapid ventricular response. Her current cardiac rhythm is still A. fib and the rate is better controlled for now. She was started on IV heparin in regards to his atrial fibrillation. MRI of the brain was done on 11/27/2016 it showed multifocal areas of acute ischemia involving the posterior fossa and including the brainstem as well as the supratentorial structures. Based on the multiplicity of these findings and the distribution of the blood supply, the possibility of embolic phenomenon/embolic stroke was entertained. This morning, the patient is still confused. She is somewhat agitated and she continues to yellow help and let me . She is there is pulling on her IV lines and oxygen and occasionally she is found to be slightly combative. She is hemodynamically stable without any significant drop in her blood pressure. Infected current systolic blood pressures around 110 and she has an adequate urine output. In terms of her agitation and restlessness, the patient was given Dilaudid which led into significant drop in her blood pressure and based on that it was discontinued. She is nothing by mouth. She has failed swallow evaluation. The echocardiogram from her most recent hospitalization on 2015 showed a left ventricle ejection fraction of around 50-55%. There is severe aortic stenosis present with a gradient of 91 mmHg. There is moderate to severe mitral stenosis and moderate degree of pulmonary hypertension with a PA pressure estimated to be around 63. There was also small pericardial effusion.. The chest x-ray showed a limited left lower lobe atelectasis with some pulmonary vessel congestion and interstitial edema. The heart is likely enlarged. The carotid Doppler showed no evidence of any significant stenosis of the proximal internal carotid arteries bilaterally. Hemoglobin is also dropped down to 7.0. Note that during early hospitalization his hemoglobin was at 11.9 and there has been steady drop in hemoglobin level down to 7.0. No evidence of any acute GI bleeding at this point. No melanotic stool. The patient is on IV heparin still. 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, glaucoma, hypertension, osteoarthritis, bronchial asthma, GE reflux History of Any Multi-Drug Resistant Organisms: MRSA Date of last positivie culture/infection: 11/13/16 MDRO Source:: Right & Left Legs Past Surgical History: Appendectomy, Hysterectomy Additional Past Surgical History / Comment(s): Appendectomy, hysterectomy, bowel resection for colon cancer, bilateral cataract extraction, EGD, laser eye surgery for glaucoma and skin cancer removal from the left side of the face Past Anesthesia/Blood Transfusion Reactions: No Reported Reaction Past Psychological History: No Psychological Hx Reported Additional Psychological History / Comment(s): PT'S SON CURT LIVES WITH HER AND HELPS HER OUT. PT USES A CANE/WALKER/WHEELCHAIR. Has home care in place Smoking Status: Never smoker Past Alcohol Use History: None Reported Past Drug Use History: None Reported - Past Family History Father Family Medical History: Cancer, Prostate Disorder Additional Family Medical History / Comment(s): prostate cancer Mother Family Medical History: Congestive Heart Failure (CHF) Medications and Allergies Home Medications Medication Instructions Recorded Confirmed Type [place]-3 Fatty Acids/Fish Oil [Fish 1 cap PO DAILY@0900 11/28/15 11/27/16 History Oil 1,000 mg Softgel] Levalbuterol Hfa Inhaler [Xopenex 2 puff INHALATION RT-Q4H 10/01/16 11/27/16 History Hfa Inhaler] Acetaminophen Tab [Tylenol] 650 mg PO Q4H PRN 11/13/16 11/27/16 History Albuterol Sulfate [Proventil Hfa] 1 puff INHALATION RT-QID 11/13/16 11/27/16 History Fluconazole [Diflucan] 100 mg PO DAILY@0900 11/27/16 11/27/16 History Furosemide [Lasix] 40 mg PO BID@0600,1400 11/27/16 11/27/16 History Lisinopril [Prinivil] 5 mg PO DAILY@0900 11/27/16 11/27/16 History Zolpidem [Ambien] 5 mg PO HS@2100 PRN 11/27/16 11/27/16 History Allergies Allergy/AdvReac Type Severity Reaction Status Date / Time amlodipine [From Norvasc] Allergy Unknown Verified 11/27/16 09:13 aspirin Allergy Unknown Verified 11/27/16 09:13 cephalexin monohydrate Allergy Unknown Verified 11/27/16 09:13 [From Keflex] cetirizine HCl [From Zyrtec] Allergy Unknown Verified 11/27/16 09:13 ciprofloxacin [From Cipro] Allergy Unknown Verified 11/27/16 09:13 ciprofloxacin HCl Allergy Unknown Verified 11/27/16 09:13 [From Cipro] clarithromycin [From Biaxin] Allergy Unknown Verified 11/27/16 09:13 hydrochlorothiazide Allergy Unknown Verified 11/27/16 09:13 iron Allergy Unknown Verified 11/27/16 09:13 levofloxacin [From Levaquin] Allergy Unknown Verified 11/27/16 09:13 milk Allergy Unknown Verified 11/27/16 09:13 nitrofurantoin Allergy Unknown Verified 11/27/16 09:13 [From Macrobid] nitrofurantoin Allergy Unknown Verified 11/27/16 09:13 macrocrystalline [From Macrobid] nut - unspecified [nut] Allergy Unknown Verified 11/27/16 09:13 oats Allergy Unknown Verified 11/27/16 09:13 Penicillins Allergy Unknown Verified 11/27/16 09:13 piroxicam [From Feldene] Allergy Unknown Verified 11/27/16 09:13 Sulfa (Sulfonamide Allergy Unknown Verified 11/27/16 09:13 Antibiotics) wheat Allergy Unknown Verified 11/27/16 09:13 Physical Exam Vitals: Vital Signs Temp Pulse Pulse Resp BP BP BP 11/28/16 07:42 99 11/28/16 07:38 95 11/28/16 07:00 94 22 97/49 11/28/16 06:00 100 22 103/61 11/28/16 05:00 97 22 95/48 11/28/16 04:00 97.6 F 104 H 28 H 111/60 11/28/16 03:00 94 28 H 111/67 11/28/16 02:00 87 24 102/51 11/28/16 01:00 84 22 96/46 11/28/16 00:00 98.7 F 96 22 102/46 11/27/16 23:02 90 26 H 92/54 11/27/16 23:00 98 20 92/54 11/27/16 22:34 97.0 F L 92 22 116/74 11/27/16 21:48 103 H 16 177/129 11/27/16 20:02 98.2 F 18 86/43 11/27/16 17:27 98 11/27/16 16:50 96.8 F L 89 18 88/45 11/27/16 14:34 97.4 F L 91 24 121/74 11/27/16 13:55 96.8 F L 90 20 117/55 Pulse Ox 11/28/16 07:42 11/28/16 07:38 11/28/16 07:00 99 11/28/16 06:00 98 11/28/16 05:00 97 11/28/16 04:00 97 11/28/16 03:00 97 11/28/16 02:00 98 11/28/16 01:00 100 11/28/16 00:00 100 11/27/16 23:02 97 11/27/16 23:00 97 11/27/16 22:34 98 11/27/16 21:48 95 11/27/16 20:02 95 11/27/16 17:27 11/27/16 16:50 90 L 11/27/16 14:34 99 11/27/16 13:55 96 Intake and Output 11/27/16 11/28/16 11/28/16 22:59 06:59 14:59 Intake Total 75 600.332 160 Output Total 150 500 115 Balance -75 100.332 45 Intake: IV 75 600 160 Sodium Chloride 0.9% 1, 75 600 160 000 ml @ 75 mls/hr IV . [id number] [facility] Rx#:[id number] Intake, IV Titration 0.332 Amount Heparin Sodium,Porcine/ 0.332 D5w Pmx 25,000 unit In Dextrose/Water 1 500ml. bag @ 8.77 UNITS/KG/HR 19 .89 mls/hr IV .Q24H [facility] Rx#:[id number] Output: Urine 150 500 115 Other: Voiding Method Indwelling Catheter Indwelling Catheter Weight 109 kg Patient is sitting up in her bed with a bedside sitter and the son is also at the bedside. I was able to make a follow some simple commands. She was able to squeeze my fingers with using her hands and she was able to wiggle her toes on both sides. Nevertheless this has not been a consistent response where at times she does not follow any commands. When touched, she would yell and she seems to be very sensitive to touch probably related to some pain. At times she would yell for no reason. Her mucous numbers are very dry. She is not in any major respiratory distress at this point. No use of accessory muscles of breathing. Head exam was generally normal. There was no scleral icterus or corneal arcus. Mucous membranes were moist. Neck is supple and there is no JVDs no goiter or neck masses. Lungs sounds are diminished bilaterally otherwise clear. Heart sounds are irregular, positive S1-S2 and there is a systolic ejection murmur grade 4/6 heard throughout the precordium. Abdomen is obese soft nontender and there is no organomegaly. No direct tenderness. No rebound tenderness. No guarding.Examination of the extremities revealed easily palpable radial, femoral and pedal pulses. There was no cyanosis, clubbing or edema. Neurologically, the patient is awake yet seems to be agitated and confused. No facial asymmetry. Pupils are round 3 mm in size and there reactive to light. No nystagmus. Tongue is the midline. Motor power cannot be accurately assessed however the patient has decent motor function in her upper extremities when she is trying to reach and follow-up things. Lower extremities are rather weak and she is able to withdrawal to painful stimuli. No Babinski. No clonus. Effexor diminished bilaterally both in the upper and lower extremities. Results - Laboratory Findings CBC and BMP: 11/28/16 06:15 11/28/16 06:15 PT/INR, D-dimer PT 11.6 sec (9.0-12.0) 11/28/16 06:15 INR 1.2 (<1.1) 11/28/16 06:15 Abnormal lab findings: Abnormal Labs 11/27/16 11/27/16 11/27/16 15:53 21:45 22:24 WBC RBC Hgb Hct MCHC RDW Neutrophils # Lymphocytes # APTT Sodium BUN Creatinine Glucose POC Glucose (mg/dL) 105 H Phosphorus Troponin I 0.312 H* 0.235 H* Albumin 11/28/16 11/28/16 11/28/16 06:15 06:15 06:15 WBC 11.7 H RBC 2.71 L Hgb 7.0 L* Hct 23.4 L MCHC 29.7 L RDW 18.5 H Neutrophils # 9.7 H Lymphocytes # 0.9 L APTT 32.9 H Sodium 146 H BUN 50 H Creatinine 2.01 H Glucose 107 H POC Glucose (mg/dL) Phosphorus 5.2 H Troponin I Albumin 2.5 L - Diagnostic Findings Chest x-ray: image reviewed Assessment and Plan Plan: Assessment 1 acute multifocal CVA, most likely in a station with a new onset atrial fibrillation/embolic phenomena. Patient has multiple areas of ischemic changes involving the posterior fossa including the brainstem as well as the supratentorial structures. The patient has a 7 mm area of high signal intensity in the right cerebral hemisphere. 1 cm area of signal density in the mid brain on the right, 7 mm area of abnormal signal density in the david on the right, 1 cm area of abnormal signal in the temporal occipital junction another 4 mm area of signal density in the corpus callosum on the right and a 7 mm abnormal signal in the caudate nucleus of the basal ganglia and within the left parietal lobe. Currently she is on IV heparin. Neurologic functions are impaired. The patient is agitated and confused. 2 new onset atrial fibrillation with rapid ventricular response, the rate is under better control for now, currently 90 heparin 3 valvular heart disease with severe aortic stenosis and moderate to severe mitral stenosis secondary pulmonary hypertension 4 anemia with significant drop in hemoglobin as low as 7 from a normal baseline approximately 2 weeks ago. Rule out underlying occult GI bleed 5 acute kidney injury. Note that the patient's renal function from last week was essentially within normal limits and there has been progressive worsening in her renal function creatinine is up to 2.1, rule out prerenal factors, rule out ATN 6 morbid obesity 7 hypertension 8 bronchial asthma, chronic 9 colon cancer, resected back and saw the vent dependent 10 lower extremity was that his been essentially healed for now with previous MRSA wound infection 11 skin cancer, resected 12 glucoma 13 chronic back pain Plan Neurochecks and an hourly basis. May be needed to use low-dose Haldol 0.5-1 mg every 4 hours for agitation if needed. Bedside sitter. Continued IV heparin. Neurology is on the case. Echocardiogram from 11/13/2016 was noted. Monitor renal function. Continue hydration. Swallow is obviously impaired. We'll keep the patient nothing by mouth for now. Aspiration precautions. Neurology consultation. We'll continue to follow. CODE STATUS is full for the time being. There is a concern in regards to the drop in hemoglobin down to 7. We' ll repeat a CBC. Check stool for occult blood and look for any other alternative sources of bleeding. We'll continue to follow.
[2016-11-28] MEDS ORDERED: PANTOPRAZOLE 40 MG/10 ML VIAL IVP SCH (10:15)
[2016-11-28 13:24] LABS: Anisocytosis Slight; Basophils # (A) 0.1 k/uL (0-0.2); Basophils % (A) 1 %; CH 25.4; Eosinophils % (A) 0 %; HCT 23.7 % (34.0-46.0); HDW 2.75; Hypochromasia Marked; Luc # (Auto) 0.13; Luc % (Auto) 1; Lymphocytes # (A) 0.8 k/uL (1.0-4.8); Lymphocytes % (A) 7 %; MCH 24.9 pg (25.0-35.0); MCHC 29.3 g/dL (31.0-37.0); MCV 85.1 fL (80.0-100.0); Mean Platelet Volume 7.3; Monocytes # (A) 0.7 k/uL (0-1.0); Monocytes % (A) 6 %; Neutrophils # (A) 9.3 k/uL (1.3-7.7); Neutrophils % (A) 85 %; RBC 2.78 m/uL (3.80-5.40); RDW 18.9 % (11.5-15.5); WBC 10.9 k/uL (3.8-10.6); WBC (Perox) 11.21
[2016-11-28] MEDS ORDERED: HALOPERIDOL LACTATE 5 MG/ML 1 ML VIAL IM ONE (13:25)
[2016-11-28] MEDS ORDERED: HALOPERIDOL LACTATE 5 MG/ML 1 ML VIAL IM STA (13:36)
[2016-11-28 13:43] LABS: HGB 6.9 gm/dL (11.4-16.0)
[2016-11-28] MEDS: HALOPERIDOL LACTATE 5 MG/ML 1 ML VIAL IVP PRN ×2 (14:10→20:33)
--- NOTE | 2016-11-28 15:21 | P.PN ---
Subjective 86 yr old female who was recently admitted to the hospital after being admitted for YARELY, sec to fluid overload, complicated with lower extremity cellulitis. Pt' s course was then noted to be complicated with acute toxic encephalopathy due to pain medications. Pt improved and was discharged a day prior to this admission. pt was able to communicate appropriately and recognize her children at the time of the discharge. Pt was admitte to the NH, however apparently was noted to have acute change in mental status. Pt was evaluated in the ER, was noted to be in atrial fibrillation with RVR, which appears to be new onset. pt was on telemetry monitering during the previous admission. pt was noted to be in sinus rhythm with PVC's. A echocardiogram, transthoracic didnot reveal any intracardiac thrombus at that time. Pt was noted to have change in mental status today, was not following any commands. Pt only moves with painful stimuli. Pt's son is at bedside. Bp was subnormal during this admission. Does on follow any commands. apparently had an episode of agitation initially last night. CT scan showed some changes with gallardo/white changes concerning for a stroke. 11/28/2016 Patient was seen in the ICU. Patient is completely agitated and requires 2 people to keep her calm. I spoke to the son again today over the phone. Discussed that patient is currently not comfortable this could obviously consequence of the current stroke.. Patient is able to move all 4 on her extremities. However is not able to recognize anyone at this time. Objective - Vital Signs Vital signs: Vital Signs Temp 99.2 F 11/28/16 12:00 Pulse 93 11/28/16 15:00 Resp 26 H 11/28/16 15:00 BP 119/90 11/28/16 15:00 Pulse Ox 97 11/28/16 15:00 Intake & Output 11/27/16 11/28/16 11/28/16 18:59 06:59 18:59 Intake Total 675.332 839.66 Output Total 650 386 Balance 25.332 453.66 Weight 109 kg Intake: IV 675 685 Sodium Chloride 0.9% 1, 675 685 000 ml @ 75 mls/hr IV . [id number] [facility] Rx#:[id number] Intake, IV Titration 0.332 154.66 Amount Heparin Sodium,Porcine/ 0.332 154.66 D5w Pmx 25,000 unit In Dextrose/Water 1 500ml. bag @ 8.77 UNITS/KG/HR 19 .89 mls/hr IV .Q24H [facility] Rx#:[id number] Output: Urine 650 386 Other: Voiding Method Indwelling Catheter Indwelling Catheter - Exam Gen. appearance agitated Neck good range of motion Lungs good air movement no rhonchi or wheezing appreciated Heart slightly tachycardic no murmurs appreciable Abdomen is soft nontender organomegaly Lower extremity no edema appreciated today Neurologically he is moving all 4 extremities is completely agitated unable to perform exam today. - Labs CBC & Chem 7: 11/28/16 12:52 11/28/16 06:15 Labs: Abnormal Lab Results - Last 24 Hours (Table) 11/27/16 11/27/16 11/27/16 Range/Units 15:53 21:45 22:24 WBC (3.8-10.6) k/uL RBC (3.80-5.40) m/uL Hgb (11.4-16.0) gm/dL Hct (34.0-46.0) % MCH (25.0-35.0) pg MCHC (31.0-37.0) g/dL RDW (11.5-15.5) % Neutrophils # (1.3-7.7) k/uL Lymphocytes # (1.0-4.8) k/uL APTT (22.0-30.0) sec Sodium (137-145) mmol/L BUN (7-17) mg/dL Creatinine (0.52-1.04) mg/dL Glucose (74-99) mg/dL POC Glucose (mg/dL) 105 H (75-99) mg/dL Phosphorus (2.5-4.5) mg/dL Troponin I 0.312 H* 0.235 H* (0.000-0.034) ng/mL Albumin (3.5-5.0) g/dL 11/28/16 11/28/16 11/28/16 Range/Units 06:15 06:15 06:15 WBC 11.7 H (3.8-10.6) k/uL RBC 2.71 L (3.80-5.40) m/uL Hgb 7.0 L* (11.4-16.0) gm/dL Hct 23.4 L (34.0-46.0) % MCH (25.0-35.0) pg MCHC 29.7 L (31.0-37.0) g/dL RDW 18.5 H (11.5-15.5) % Neutrophils # 9.7 H (1.3-7.7) k/uL Lymphocytes # 0.9 L (1.0-4.8) k/uL APTT 32.9 H (22.0-30.0) sec Sodium 146 H (137-145) mmol/L BUN 50 H (7-17) mg/dL Creatinine 2.01 H (0.52-1.04) mg/dL Glucose 107 H (74-99) mg/dL POC Glucose (mg/dL) (75-99) mg/dL Phosphorus 5.2 H (2.5-4.5) mg/dL Troponin I (0.000-0.034) ng/mL Albumin 2.5 L (3.5-5.0) g/dL 11/28/16 Range/Units 12:52 WBC 10.9 H (3.8-10.6) k/uL RBC 2.78 L (3.80-5.40) m/uL Hgb 6.9 L* (11.4-16.0) gm/dL Hct 23.7 L (34.0-46.0) % MCH 24.9 L (25.0-35.0) pg MCHC 29.3 L (31.0-37.0) g/dL RDW 18.9 H (11.5-15.5) % Neutrophils # 9.3 H (1.3-7.7) k/uL Lymphocytes # 0.8 L (1.0-4.8) k/uL APTT (22.0-30.0) sec Sodium (137-145) mmol/L BUN (7-17) mg/dL Creatinine (0.52-1.04) mg/dL Glucose (74-99) mg/dL POC Glucose (mg/dL) (75-99) mg/dL Phosphorus (2.5-4.5) mg/dL Troponin I (0.000-0.034) ng/mL Albumin (3.5-5.0) g/dL Assessment and Plan Plan: 1. 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 New onset atrial fibrillation 3. Hypotension due to tachyphylaxis. 4. Acute metabolic encephalopathy. 5. recent bilateral cellulitis. 6. H/o of HTN 7. Dyslipidemia Plan Continue IV heparin. I discussed with the son in detail. CODE STATUS will be changed to DO NOT RESUSCITATE and no aggressive measures prior to a CODE BLUE in addition. Patient will be started on haloperidol. Goals of care would likely be changed over to comfort measures only if patient makes no significant improvement in the next 24 hours, and this is from the discussion with the son. Family is also to discuss the following issues with Dr. Ramirez is a neurologist on consult. Patient should be maintained in the ICU for another 12-14 hours and have close monitoring. When complete cessation of care and goals of care changed to comfort measures only then patient can be triaged to medical floor.
--- NOTE | 2016-11-28 20:09 | P.PN ---
Subjective This is a 86-year-old right-handed white female who was seen yesterday for evaluation of altered mental status. Patient had evidence on neurological examination of possible brainstem stroke. She was sent for an emergent MRI of the brain yesterday. MRI was reviewed yesterday and did reveal evidence of multiple areas of acute stroke involving the brainstem and both cerebral hemispheres. She was transferred to the intensive care unit for close monitoring. The patient was found to have new onset of atrial fibrillation with RVR. She was transferred as noted to the ICU for close monitoring. She underwent a carotid Doppler ultrasound which came back unremarkable with no evidence of significant stenosis. It was felt that her multiple strokes on MRI of the brain are embolic in nature secondary to the atrial fibrillation. Cardiology was consult for possible evaluation for EKATERINA procedure. We are waiting further recommendations from cardiology. She is currently on heparin for the atrial fibrillation. She remains very agitated and confused earlier today. She is very restless as well in the ICU setting. Family was updated on her overall neurological test results and her current neurological status. Family will have a meeting to discuss further treatment plans for this patient. According to the daughter who is at bedside they're leaning towards comfort care measures. We will continue close neurological follow-up with the patient in the intensive care unit. Her overall prognosis at this time remains very guarded. Objective - Vital Signs Vital signs: Vital Signs Temp 97.9 F 11/28/16 16:00 Pulse 82 11/28/16 19:00 Resp 26 H 11/28/16 19:00 BP 107/57 11/28/16 19:00 Pulse Ox 89 L 11/28/16 19:00 Intake & Output 11/28/16 11/28/16 11/29/16 06:59 18:59 06:59 Intake Total 265.102 6859.035 75 Output Total 650 478 40 Balance 25.332 691.035 35 Weight 109 kg Intake: IV 675 910 75 Sodium Chloride 0.9% 1, 675 910 75 000 ml @ 75 mls/hr IV . [id number] [facility] Rx#:[id number] Intake, IV Titration 0.332 259.035 Amount Heparin Sodium,Porcine/ 0.332 259.035 D5w Pmx 25,000 unit In Dextrose/Water 1 500ml. bag @ 8.77 UNITS/KG/HR 19 .89 mls/hr IV .Q24H [facility] Rx#:[id number] Output: Urine 650 478 40 Other: Voiding Method Indwelling Catheter Indwelling Catheter - Exam Physical examination: PHYSICAL EXAMINATION: Patient is resting comfortably in bed. Patient is restless and agitated in the ICU today. VITAL SIGNS: Blood pressure is [107/57]. Heart rate is [82]. Respiration is [26] . Temperature is [97.9]. HEENT: Head is atraumatic, neck is supple, there were no carotid bruits. CHEST: Lungs are clear to auscultation and percussion. CARDIAC: S1, S2 normal rate and rhythm. There is no murmur. ABDOMEN: Soft and nontender. Bowel sounds are present. EXTREMITIES: There is no pedal edema. Peripheral pulses are present. Neurological examination: Patient's neurological examination is unchanged from yesterday. She is examined today in the intensive care unit. She is alert and oriented 1. She is agitated and combative at times. She is moving all 4 extremities. Deep tendon reflexes are 1+ and symmetric. Plantar responses flexor bilaterally. - Labs CBC & Chem 7: 11/28/16 12:52 11/28/16 06:15 Labs: Abnormal Lab Results - Last 24 Hours (Table) 11/27/16 11/27/16 11/27/16 Range/Units 21:45 21:45 22:24 WBC (3.8-10.6) k/uL RBC (3.80-5.40) m/uL Hgb (11.4-16.0) gm/dL Hct (34.0-46.0) % MCH (25.0-35.0) pg MCHC (31.0-37.0) g/dL RDW (11.5-15.5) % Neutrophils # (1.3-7.7) k/uL Lymphocytes # (1.0-4.8) k/uL APTT (22.0-30.0) sec Sodium (137-145) mmol/L BUN (7-17) mg/dL Creatinine (0.52-1.04) mg/dL Glucose (74-99) mg/dL POC Glucose (mg/dL) 105 H (75-99) mg/dL Phosphorus (2.5-4.5) mg/dL Troponin I 0.235 H* (0.000-0.034) ng/mL Albumin (3.5-5.0) g/dL Crossmatch See Detail 11/28/16 11/28/16 11/28/16 Range/Units 06:15 06:15 06:15 WBC 11.7 H (3.8-10.6) k/uL RBC 2.71 L (3.80-5.40) m/uL Hgb 7.0 L* (11.4-16.0) gm/dL Hct 23.4 L (34.0-46.0) % MCH (25.0-35.0) pg MCHC 29.7 L (31.0-37.0) g/dL RDW 18.5 H (11.5-15.5) % Neutrophils # 9.7 H (1.3-7.7) k/uL Lymphocytes # 0.9 L (1.0-4.8) k/uL APTT 32.9 H (22.0-30.0) sec Sodium 146 H (137-145) mmol/L BUN 50 H (7-17) mg/dL Creatinine 2.01 H (0.52-1.04) mg/dL Glucose 107 H (74-99) mg/dL POC Glucose (mg/dL) (75-99) mg/dL Phosphorus 5.2 H (2.5-4.5) mg/dL Troponin I (0.000-0.034) ng/mL Albumin 2.5 L (3.5-5.0) g/dL Crossmatch 11/28/16 Range/Units 12:52 WBC 10.9 H (3.8-10.6) k/uL RBC 2.78 L (3.80-5.40) m/uL Hgb 6.9 L* (11.4-16.0) gm/dL Hct 23.7 L (34.0-46.0) % MCH 24.9 L (25.0-35.0) pg MCHC 29.3 L (31.0-37.0) g/dL RDW 18.9 H (11.5-15.5) % Neutrophils # 9.3 H (1.3-7.7) k/uL Lymphocytes # 0.8 L (1.0-4.8) k/uL APTT (22.0-30.0) sec Sodium (137-145) mmol/L BUN (7-17) mg/dL Creatinine (0.52-1.04) mg/dL Glucose (74-99) mg/dL POC Glucose (mg/dL) (75-99) mg/dL Phosphorus (2.5-4.5) mg/dL Troponin I (0.000-0.034) ng/mL Albumin (3.5-5.0) g/dL Crossmatch Assessment and Plan (1) Brainstem stroke Status: Acute Code(s): I63.9 - CEREBRAL INFARCTION, UNSPECIFIED (2) Acute encephalopathy Status: Acute Code(s): G93.40 - ENCEPHALOPATHY, UNSPECIFIED (3) Cellulitis of both lower extremities Status: Acute Code(s): L03.115 - CELLULITIS OF RIGHT LOWER LIMB; L03.116 - CELLULITIS OF LEFT LOWER LIMB Plan: This patient is a 86-year-old female who was seen yesterday for altered mental status and confusion. CAT scan of the brain revealed a questionable brainstem stroke. She was subsequent sent for MRI of the brain yesterday which revealed not only brainstem infarction but multiple bilateral cortical infarcts. Patient was found to have new onset atrial fibrillation as well and was transferred to the intensive care unit. She was started on a heparin protocol. She continues to remain agitated and confused. She is not following commands. As noted MRI of the brain did reveal multiple areas of infarction involving the brainstem as well as both cortical hemispheres. This is felt to be likely embolic in nature secondary to the new onset atrial fibrillation. Case was discussed today at length with the patient's daughter at bedside. Family will have a meeting in regards to further management of her condition. She does continue to be restless and agitated likely secondary to her multiple acute strokes. She does have evidence of significant anemia. Apparently the family has decided against blood transfusion at this time. Would continue all supportive care at this time. We will await further decisions from the family regarding long-term care and management of her condition. Her overall prognosis at this time remains very guarded.
[2016-11-29] MEDS ORDERED: FUROSEMIDE 10 MG/ML 4 ML VIAL IV STA (02:25)
[2016-11-29] MEDS: HALOPERIDOL LACTATE 5 MG/ML 1 ML VIAL IVP PRN (02:34)
[2016-11-29 04:04] LABS: Anisocytosis Slight; Basophils % (A) 0 %; CH 25.1; CHCM 29.5; Eosinophils % (A) 0 %; HCT 24.9 % (34.0-46.0); HDW 2.74; HGB 7.4 gm/dL (11.4-16.0); Hypochromasia Marked; Luc # (Auto) 0.12; Luc % (Auto) 1; Lymphocytes % (A) 9 %; MCH 25.3 pg (25.0-35.0); MCHC 29.6 g/dL (31.0-37.0); MCV 85.7 fL (80.0-100.0); Mean Platelet Volume 7.4; Monocytes # (A) 0.7 k/uL (0-1.0); Monocytes % (A) 6 %; Neutrophils # (A) 9.2 k/uL (1.3-7.7); Neutrophils % (A) 83 %; RBC 2.91 m/uL (3.80-5.40); RDW 19.2 % (11.5-15.5); WBC 11.1 k/uL (3.8-10.6); WBC (Perox) 11.78
[2016-11-29 04:16] LABS: Calcium 8.9 mg/dL (8.4-10.2); Magnesium 1.9 mg/dL (1.6-2.3); Phosphorous 6.3 mg/dL (2.5-4.5); Potassium 4.3 mmol/L (3.5-5.1)
[2016-11-29 04:28] VITALS: TEMP 98.1
[2016-11-29] MEDS ORDERED: LORazepam 2 MG/ML SYRINGE IV PRN (05:09)
[2016-11-29] MEDS ORDERED: MORPHINE SULFATE 4 MG/ML SYRINGE IV PRN (05:09)
[2016-11-29] MEDS ORDERED: MORPHINE SULFATE (100 MG/2 ML) 100 MG in SODIUM CHLORIDE 0.9% 100 ML IV SCH (05:15)
[2016-11-29 06:13] VITALS: BP 68/42; PULSE 78; RESP 23
--- NOTE | 2017-03-04 14:20 | P.DS ---
Providers Date of admission: 11/27/16 13:29 Attending physician: Juanita Nascimento Consults: 11/27/16 20:04 Consult Physician Stat Consulting Provider: Edmond Moseley Consult Reason/Comments: ICU management Do you want consulting provider notified?: Yes 11/28/16 02:03 Consult Physician Urgent Consulting Provider: Edmond Moseley Consult Reason/Comments: Acute embolic stroke Do you want consulting provider notified?: Yes Primary care physician: Radha Blevins [facility] Course: 86 yr old female who was recently admitted to the hospital after being admitted for YARELY, sec to fluid overload, complicated with lower extremity cellulitis. Pt' s course was then noted to be complicated with acute toxic encephalopathy due to pain medications. Pt improved and was discharged a day prior to this admission. pt was able to communicate appropriately and recognize her children at the time of the discharge. Pt was admitte to the NH, however apparently was noted to have acute change in mental status. Pt was evaluated in the ER, was noted to be in atrial fibrillation with RVR, which appears to be new onset. pt was on telemetry monitering during the previous admission. pt was noted to be in sinus rhythm with PVC's. A echocardiogram, transthoracic didnot reveal any intracardiac thrombus at that time. Pt was noted to have change in mental status today, was not following any commands. Pt only moves with painful stimuli. Pt's son is at bedside. Bp was subnormal during this admission. Does on follow any commands. apparently had an episode of agitation initially last night. CT scan showed some changes with gallardo/white changes concerning for a stroke. 11/28/2016 Patient was seen in the ICU. Patient is completely agitated and requires 2 people to keep her calm. I spoke to the son again today over the phone. Discussed that patient is currently not comfortable this could obviously consequence of the current stroke.. Patient is able to move all 4 on her extremities. However is not able to recognize anyone at this time. Objective - Vital Signs Vital signs: Vital Signs Temp 99.2 F 11/28/16 12:00 Pulse 93 11/28/16 15:00 Resp 26 H 11/28/16 15:00 BP 119/90 11/28/16 15:00 Pulse Ox 97 11/28/16 15:00 Intake & Output 11/27/16 11/28/16 11/28/16 18:59 06:59 18:59 Intake Total 675.332 839.66 Output Total 650 386 Balance 25.332 453.66 Weight 109 kg Intake: IV 675 685 Sodium Chloride 0.9% 1, 675 685 000 ml @ 75 mls/hr IV . [id number] [facility] Rx#:[id number] Intake, IV Titration 0.332 154.66 Amount Heparin Sodium,Porcine/ 0.332 154.66 D5w Pmx 25,000 unit In Dextrose/Water 1 500ml. bag @ 8.77 UNITS/KG/HR 19 .89 mls/hr IV .Q24H [facility] Rx#:[id number] Output: Urine 650 386 Other: Voiding Method Indwelling Catheter Indwelling Catheter - Exam Gen. appearance agitated Neck good range of motion Lungs good air movement no rhonchi or wheezing appreciated Heart slightly tachycardic no murmurs appreciable Abdomen is soft nontender organomegaly Lower extremity no edema appreciated today Neurologically he is moving all 4 extremities is completely agitated unable to perform exam today. - Labs CBC & Chem 7: 11/28/16 12:52 11/28/16 06:15 Labs: Abnormal Lab Results - Last 24 Hours (Table) 11/27/16 11/27/16 11/27/16 Range/Units 15:53 21:45 22:24 WBC (3.8-10.6) k/uL RBC (3.80-5.40) m/uL Hgb (11.4-16.0) gm/dL Hct (34.0-46.0) % MCH (25.0-35.0) pg MCHC (31.0-37.0) g/dL RDW (11.5-15.5) % Neutrophils # (1.3-7.7) k/uL Lymphocytes # (1.0-4.8) k/uL APTT (22.0-30.0) sec Sodium (137-145) mmol/L BUN (7-17) mg/dL Creatinine (0.52-1.04) mg/dL Glucose (74-99) mg/dL POC Glucose (mg/dL) 105 H (75-99) mg/dL Phosphorus (2.5-4.5) mg/dL Troponin I 0.312 H* 0.235 H* (0.000-0.034) ng/mL Albumin (3.5-5.0) g/dL 11/28/16 11/28/16 11/28/16 Range/Units 06:15 06:15 06:15 WBC 11.7 H (3.8-10.6) k/uL RBC 2.71 L (3.80-5.40) m/uL Hgb 7.0 L* (11.4-16.0) gm/dL Hct 23.4 L (34.0-46.0) % MCH (25.0-35.0) pg MCHC 29.7 L (31.0-37.0) g/dL RDW 18.5 H (11.5-15.5) % Neutrophils # 9.7 H (1.3-7.7) k/uL Lymphocytes # 0.9 L (1.0-4.8) k/uL APTT 32.9 H (22.0-30.0) sec Sodium 146 H (137-145) mmol/L BUN 50 H (7-17) mg/dL Creatinine 2.01 H (0.52-1.04) mg/dL Glucose 107 H (74-99) mg/dL POC Glucose (mg/dL) (75-99) mg/dL Phosphorus 5.2 H (2.5-4.5) mg/dL Troponin I (0.000-0.034) ng/mL Albumin 2.5 L (3.5-5.0) g/dL 11/28/16 Range/Units 12:52 WBC 10.9 H (3.8-10.6) k/uL RBC 2.78 L (3.80-5.40) m/uL Hgb 6.9 L* (11.4-16.0) gm/dL Hct 23.7 L (34.0-46.0) % MCH 24.9 L (25.0-35.0) pg MCHC 29.3 L (31.0-37.0) g/dL RDW 18.9 H (11.5-15.5) % Neutrophils # 9.3 H (1.3-7.7) k/uL Lymphocytes # 0.8 L (1.0-4.8) k/uL APTT (22.0-30.0) sec Sodium (137-145) mmol/L BUN (7-17) mg/dL Creatinine (0.52-1.04) mg/dL Glucose (74-99) mg/dL POC Glucose (mg/dL) (75-99) mg/dL Phosphorus (2.5-4.5) mg/dL Troponin I (0.000-0.034) ng/mL Albumin (3.5-5.0) g/dL Assessment and Plan Plan: 1. 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 New onset atrial fibrillation 3. Hypotension due to tachyphylaxis. 4. Acute metabolic encephalopathy. 5. recent bilateral cellulitis. 6. H/o of HTN 7. Dyslipidemia COde status was made comfort measures only. PT Patient Condition at Discharge: Poor Plan - Discharge Summary Discharge Medication List Leonard-3 Fatty Acids/Fish Oil [Fish Oil 1,000 mg Softgel] 1 cap PO DAILY@0900 10/03 [History] Levalbuterol Hfa Inhaler [Xopenex Hfa Inhaler] 2 puff INHALATION RT-Q4H [History] Acetaminophen Tab [Tylenol] 650 mg PO Q4H PRN 11/13/16 [History] Albuterol Sulfate [Proventil Hfa] 1 puff INHALATION RT-QID 11/13/16 [History] Fluconazole [Diflucan] 100 mg PO DAILY@0900 11/27/16 [History] Furosemide [Lasix] 40 mg PO BID@0600,1400 11/27/16 [History] Lisinopril [Prinivil] 5 mg PO DAILY@0900 11/27/16 [History] Zolpidem [Ambien] 5 mg PO HS@2100 PRN 11/27/16 [History] Follow up Appointment(s)/Referral(s): Radha Calvo III, MD [Primary Care Provider] - 1-2 days Discharge Disposition: - Preliminary Cause of Preliminary Cause of : CVA
== END 2016-11-29 09:14 | disposition expired | DRG 64 ==
LOC: EC 09:01 → 6SEL 13:29 → 6ICU 22:33
PROVIDERS: ADMIT Internal Medicine; ATTEND Internal Medicine
DX: I63.19 Cerebral infarction due to embolism of other precerebral artery (principal); G93.41 Metabolic encephalopathy; N17.9 Acute kidney failure, unspecified; I95.9 Hypotension, unspecified; I13.0 Hypertensive heart and chronic kidney disease with heart failure and stage 1 through stage 4 chronic kidney disease, or unspecified chronic kidney disease; I27.2 Other secondary pulmonary hypertension; I31.3 Pericardial effusion (noninflammatory); I50.9 Heart failure, unspecified; I48.91 Unspecified atrial fibrillation; Z51.5 Encounter for palliative care; Z66 Do not resuscitate; I08.0 Rheumatic disorders of both mitral and aortic valves; R06.82 Tachypnea, not elsewhere classified; I49.3 Ventricular premature depolarization; N18.2 Chronic kidney disease, stage 2 (mild); D64.9 Anemia, unspecified; K21.9 Gastro-esophageal reflux disease without esophagitis; E78.5 Hyperlipidemia, unspecified; J45.909 Unspecified asthma, uncomplicated; R40.2410 Glasgow coma scale score 13-15, unspecified time; M10.9 Gout, unspecified; M54.9 Dorsalgia, unspecified; R32 Unspecified urinary incontinence; G89.29 Other chronic pain; H40.9 Unspecified glaucoma; M19.90 Unspecified osteoarthritis, unspecified site; Z85.828 Personal history of other malignant neoplasm of skin; Z98.42 Cataract extraction status, left eye; Z86.14 Personal history of Methicillin resistant Staphylococcus aureus infection; Z85.038 Personal history of other malignant neoplasm of large intestine; Z98.41 Cataract extraction status, right eye; Z82.49 Family history of ischemic heart disease and other diseases of the circulatory system; Z74.01 Bed confinement status; Z79.899 Other long term (current) drug therapy; Z87.440 Personal history of urinary (tract) infections; Z88.6 Allergy status to analgesic agent; Z88.1 Allergy status to other antibiotic agents; Z91.011 Allergy to milk products; Z88.0 Allergy status to penicillin; Z88.2 Allergy status to sulfonamides; Z88.8 Allergy status to other drugs, medicaments and biological substances; Z91.018 Allergy to other foods; Z78.1 Physical restraint status; Z90.710 Acquired absence of both cervix and uterus; Z90.49 Acquired absence of other specified parts of digestive tract; Z80.42 Family history of malignant neoplasm of prostate
CPT/HCPCS: 36415; 70450; 70551; 71010; 80048; 80053; 80306; 81001; 82140; 82272; 83605; 83735; 84100; 84484; 85025; 85610; 85730; 86850; 86900; 86901; 86920; 87040; 87086; 93005; 93880; 94640; 99285